=== PATIENT | female | born 1980 | race Caucasian/White ===

== ENCOUNTER 2021-01-07 06:55 | Inpatient (IN) | payer MEDICAID, SELFPAY ==
[2021-01-07] VITALS (74 sets, daily range): BP systolic 81–123; BP diastolic 44–78; PULSE 71–105; RESP 18; TEMP 36.5–37.6; O2SAT 90–100; BMI 28.6
[2021-01-07 09:12] LABS: Absolute Lymphocyte Count 1.69 X10^3/uL (0.83-4.51); Absolute Neutrophil Count 6.2 X10^3/uL (2.0-7.7); Basophil# 0.02 X10^3/uL; Basophil% 0.2 % (0-1); Eosinophil# 0.05 X10^3/uL; Eosinophils% 0.6 % (0-5); Hematocrit 30.3 % (37-47); Hemoglobin 9.9 g/dL (12.0-15.0); Lymphocyte # 1.69 X10^3/ul (0.83-4.51); Lymphocyte % 19.2 % (19-41); Mean Corp Hgb Conc 32.7 g/dL (32-36); Mean Corpuscular Hgb 30.1 pg (27.0-32.0); Mean Corpuscular Volume 92.1 fL (81-99); Mean Platelet Vol. 11.6 fl (6.2-12.0); NRBC Flagged by Analyzer 0 % (0-5); Neutrophil # 6.23 X10^3/uL (2.7-7.7); Platelet Count 195 K/mm3 (150-450); RBC Distribution Width SD 47.4 fl (35.1-43.9); Red Blood Count 3.29 M/mm3 (4.2-5.4); White Blood Count 8.8 K/mm3 (4.4-11.0)
[2021-01-07] MEDS: Oxytocin 30 units/NS 500 ml 30 UNITS/500 ML IV.SOLN IV (09:16)
[2021-01-07] MEDS: Lactated Ringers 1,000 ML 50 ML IV (09:16)
[2021-01-07] MEDS: Lactated Ringers 500 ML 999 ML IV ×2 (14:39→15:57)
[2021-01-07] MEDS: fentaNYL-bupivacaine (epidural) 100 ML BAG EPIDURAL (15:38)
--- NOTE | 2021-01-07 18:25 | OB.TRI.HP_ITS ---
HPI - General General Date of Admission: 01/07/21 HPI Narrative DAINA SAVAGE, is a 40 F at 39.0 weeks gestation for induction of labor for AMA Maternal Data Information FRANNIE Calculator Estimated Delivery Date Method Current WG Current Estimate 01/14/21 Manual 39w 0d PFSH PFS Medical History Advanced maternal age (AMA) in Anemia Asthma Blood clotting disorder Factor 5 Leiden mutation, heterozygous HPV (human papilloma virus) infection Kidney disease depression Home Medications Iron (ferrous sulfate) 325 mg PO/SL DAILY 01/07/21 [History Last Taken 01/06/21 09:00] aspirin 81 mg PO DAILY 01/07/21 [History Last Taken 01/06/21 09:00] cetirizine [Zyrtec] 10 mg PO DAILY PRN PRN 01/07/21 [History Last Taken 01/05/21 10:00] famotidine 20 mg PO DAILY 01/07/21 [History Last Taken 01/06/21 08:00] vit-iron fum-folic ac [Prena-Tab] 1 tab PO DAILY 01/07/21 [History Last Taken 01/06/21 09:00] Allergy/AdvReac Type Severity Reaction Status Date / Time banana Allergy Laryngospas Verified 01/07/21 08:10 ms Gadolinium-MRI Contrast Allergy Hives Verified 01/07/21 08:10 Medium [CONTRAST] Iodinated Contrast Media Allergy Hives Verified 01/07/21 08:10 [CONTRASTS] morphine Allergy Itching Verified 01/07/21 08:09 Surgical History History of surgery Previous section Social History Smoking Status: Never smoker History Elective abortions Hx Para 2 Spontaneous abortions Hx # Term Pregnancies Ectopic pregnancies Hx # Pregnancies Multiple births # of living children ROS Eyes Eyes: Denies blurry vision Cardiovascular Cardiovascular: Reports none; Denies chest pain at rest, chest pain with activity or dizziness Respiratory/Chest Respiratory/Chest: Denies cough or dyspnea Gastrointestinal Gastrointestinal: Reports none and other; Denies diarrhea or vomiting Genitourinary Genitourinary: Denies dysuria Musculoskeletal Musculoskeletal: Reports none Integumentary Integumentary: Reports none; Denies rash Neurologic Neurologic: Denies dizziness, headache(s) or other visual disturbances Psychiatric Psychiatric: Reports none Physical Exam Const alert and no apparent distress General Appearance: cooperative Orientation / Consciousness: awake Exam Limitations: no limitations HEENT normocephalic Eyes General Eye: normal appearance of both eyes Neck full ROM Chest inspection of chest normal Resp normal respiratory effort and normal air movement Effort and Inspection: symmetric chest movement Auscultation: clear to auscultation bilaterally Cardio regular rate GI soft to palpation, non-tender and non-distended Inspection: and other Manual OB Exam: dilated 4.5, effaced 90 and station 0 Amniotic Fluid: clear amniotic fluid Back/Spine normal ROM Extremity full ROM, normal capillary refill and no calf tenderness Skin no rashes or lesions noted Neuro oriented x3 and CN's II-XII intact bilaterally Psych mental status grossly normal NST FHR Rate Baby A Baseline: 145 Variability:: Moderate Accelerations:: 15 x 15 Decelerations:: None NST Reactive:: Yes FHR Category:: Category I Uterine Activity:: 2-5 minutes Assessment & Plan (1) Previous section: (2) Anemia: QUALIFIERS: Anemia type: iron deficiency Iron deficiency anemia t ype: unspecified iron deficiency Qualified Code(s): D50.9 - Iron deficiency anemia, unspecified COMMENT: iv iron infusions (3) Advanced maternal age (AMA) in : (4) Asthma: QUALIFIERS: Asthma severity: unspecified severity Asthma persistence: intermittent Asthma complication type: unspecified Qualified Code(s): J45.20 - Mild intermittent asthma, uncomplicated (5) Rh negative status during : QUALIFIERS: Trimester: third trimester Qualified Code(s): O26.893 - Other specified related conditions, third trimester; Z67.91 - Unspecified blood type, Rh negative (6) Encounter for induction of labor: (7) Patient desires vaginal after section (): PLAN: Continue Pitocin IV and titrate per policy CEFM Epidural when indicated Anticipate Dr. Hamilton present on unit and updated on status
--- NOTE | 2021-01-07 18:43 | HP.PCM.OB_ITS ---
HPI - General General Date of Admission: 01/07/21 HPI Narrative DAINA SAVAGE, is a 40 F at 39.0 weeks gestation who presents for induction of labor for AMA. She has a history of a vaginal delivery and then a primary C/S for failed induction. She desires TOLAC. Maternal Data Information FRANNIE Calculator Estimated Delivery Date Method Current WG Current Estimate 01/14/21 Manual 39w 0d PFSH PFSH Medical History Advanced maternal age (AMA) in Anemia Asthma Blood clotting disorder Factor 5 Leiden mutation, heterozygous HPV (human papilloma virus) infection Kidney disease depression Home Medications Iron (ferrous sulfate) 325 mg PO/SL DAILY 01/07/21 [History Last Taken 01/06/21 09:00] aspirin 81 mg PO DAILY 01/07/21 [History Last Taken 01/06/21 09:00] cetirizine [Zyrtec] 10 mg PO DAILY PRN PRN 01/07/21 [History Last Taken 01/05/21 10:00] famotidine 20 mg PO DAILY 01/07/21 [History Last Taken 01/06/21 08:00] vit-iron fum-folic ac [Prena-Tab] 1 tab PO DAILY 01/07/21 [History Last Taken 01/06/21 09:00] Allergy/AdvReac Type Severity Reaction Status Date / Time banana Allergy Laryngospas Verified 01/07/21 08:10 ms Gadolinium-MRI Contrast Allergy Hives Verified 01/07/21 08:10 Medium [CONTRAST] Iodinated Contrast Media Allergy Hives Verified 01/07/21 08:10 [CONTRASTS] morphine Allergy Itching Verified 01/07/21 08:09 Surgical History History of surgery Previous section Social History Smoking Status: Never smoker History Elective abortions Hx Para 2 Spontaneous abortions Hx # Term Pregnancies Ectopic pregnancies Hx # Pregnancies Multiple births # of living children NST FHR Rate Baby A Baseline: 140 Variability:: Moderate Accelerations:: 15 x 15 Decelerations:: None NST Reactive:: Yes FHR Category:: Category I Uterine Activity:: 2-4 min and palpate mild and relaxed in between ROS Eyes Eyes: Denies blurry vision, change in vision or spots in vision ENT HEENT: Denies dizziness or headache(s) Cardiovascular Cardiovascular: Denies abdominal pain, chest pain or dyspnea Respiratory/Chest Respiratory/Chest: Denies cough, dyspnea, shortness of breath at rest or titus rtness of breath with exertion Gastrointestinal Gastrointestinal: Denies abdominal pain, diarrhea or vomiting Genitourinary Genitourinary: Denies change in urinary stream, difficulty urinating or dysuria Musculoskeletal Musculoskeletal: Reports none Integumentary Integumentary: Denies rash Neurologic Neurologic: Denies dizziness, headache(s), memory loss or weakness Psychiatric Psychiatric: Reports none Vital Signs Vital Signs Vital Signs: 01/07/21 07:45 01/07/21 07:46 01/07/21 09:50 Temperature 98.4 F Pulse Rate 89 75 Blood Pressure 104/58 L 112/70 BP Systolic 104 112 BP Diastolic 58 70 Pulse Ox 01/07/21 09:51 01/07/21 11:15 01/07/21 12:30 Temperature 97.7 F L 98.2 F 99.0 F Pulse Rate 86 79 Blood Pressure 95/62 101/59 L BP Systolic 95 101 BP Diastolic 62 59 Pulse Ox 99 01/07/21 13:53 01/07/21 13:57 01/07/21 15:25 Temperature 98.1 F Pulse Rate 88 89 Blood Pressure 99/54 L 117/78 BP Systolic 99 117 BP Diastolic 54 78 Pulse Ox 01/07/21 15:26 01/07/21 15:31 01/07/21 15:35 Temperature Pulse Rate 103 H 89 97 Blood Pressure 121/74 H 114/65 BP Systolic 121 114 BP Diastolic 74 65 Pulse Ox 100 100 01/07/21 15:36 01/07/21 15:37 01/07/21 15:41 Temperature 98.2 F Pulse Rate 93 81 Blood Pressure 99/58 L BP Systolic 99 BP Diastolic 58 Pulse Ox 100 01/07/21 15:44 01/07/21 15:45 01/07/21 15:49 Temperature Pulse Rate 89 94 90 Blood Pressure 95/55 L BP Systolic 95 BP Diastolic 55 Pulse Ox 100 99 01/07/21 15:50 01/07/21 15:54 01/07/21 15:55 Temperature Pulse Rate 86 90 105 H Blood Pressure 86/48 L 93/55 L BP Systolic 86 93 BP Diastolic 48 55 Pulse Ox 98 01/07/21 15:59 01/07/21 16:04 01/07/21 16:07 Temperature Pulse Rate 97 91 92 Blood Pressure 86/49 L BP Systolic 86 BP Diastolic 49 Pulse Ox 99 99 01/07/21 16:09 01/07/21 16:10 01/07/21 16:14 Temperature Pulse Rate 75 88 Blood Pressure 86/50 L BP Systolic 86 BP Diastolic 50 Pulse Ox 98 100 01/07/21 16:15 01/07/21 16:19 01/07/21 16:23 Temperature Pulse Rate 97 71 86 Blood Pressure 81/44 L 99/52 L BP Systolic 81 99 BP Diastolic 44 52 Pulse Ox 98 01/07/21 16:24 01/07/21 16:26 01/07/21 16:30 Temperature Pulse Rate 89 99 Blood Pressure 96/55 L BP Systolic 96 BP Diastolic 55 Pulse Ox 100 90 01/07/21 16:31 01/07/21 16:34 01/07/21 16:45 Temperature 98.2 F Pulse Rate 91 73 Blood Pressure 123/57 H 106/58 L BP Systolic 123 106 BP Diastolic 57 58 Pulse Ox 01/07/21 16:54 01/07/21 17:05 01/07/21 17:13 Temperature Pulse Rate 80 88 95 Blood Pressure 104/56 L 109/61 107/60 BP Systolic 104 109 107 BP Diastolic 56 61 60 Pulse Ox 01/07/21 17:27 01/07/21 17:28 01/07/21 18:29 Temperature 98.1 F 98.8 F Pulse Rate 83 96 Blood Pressure 109/57 L BP Systolic 109 BP Diastolic 57 Pulse Ox 100 100 100 Weight Weight: 194 lb Body Mass Index (BMI) 28.6 Physical Exam Const alert, oriented x3 and no apparent distress General Appearance: cooperative Orientation / Consciousness: awake Exam Limitations: no limitations HEENT normocephalic Head and Scalp: normal to inspection Eyes General Eye: normal appearance of both eyes Neck full ROM and no lymphadenopathy Lymph Lymphatic: no lymphadenopathy noted Chest inspection of chest normal Resp normal respiratory effort, normal air movement and clear to auscultation bilaterally Effort and Inspection: able to speak in complete sentences and symmetric chest movement Cardio regular rate and regular rhythm GI normal to inspection, nondistended, normoactive bowel sounds Back/Spine normal ROM Extremity full ROM and no calf tenderness Skin no rashes or lesions noted General Skin Exam: no breakdown Neuro oriented x3 and CN's II-XII intact bilaterally Psych mental status grossly normal and thought process normal Labs Labs Labs: Blood Type O NEGATIVE Antibody Screen POSITIVE H Hct 30.3 % (37-47) L Hgb 9.9 g/dL (12.0-15.0) L Assessment & Plan (1) Factor 5 Leiden mutation, heterozygous: (2) Asthma: QUALIFIERS: Asthma complication type: unspecified Asthma persistence: intermittent Asthma severity: unspecified severity Qualified Code(s): J45.20 - Mild intermittent asthma, uncomplicated (3) Previous section: (4) Anemia: QUALIFIERS: Anemia type: iron deficiency Iron deficiency anemia type: unspecified iron deficiency Qualified Code(s): D50.9 - Iron deficiency anemia, unspecified COMMENT: iv iron infusions (5) Advanced maternal age (AMA) in : (6) Rh negative status during : PLAN: Admit to labor and delivery Routine labs Start IV fluids and titrate per orders Pain medications when indicated Placement of Jovel bulb catheter Start Pitocin IV after jovel bulb out GBS negative Dr. Hamilton aware of admission and plan of care Anticipate
[2021-01-07] MEDS: Lactated Ringers 1,000 ML 200 ML IV (18:52)
--- NOTE | 2021-01-07 19:12 | PCM.PN.OB ---
Subjective Subjective Patient seen at bedside. Resting comfortably since epidural placement. Denies any pain. Objective Data Objective Data Vital Signs: Vital Signs Temp Pulse BP Pulse Ox 98.8 F 96 109/57 L 100 01/07/21 18:29 01/07/21 18:29 01/07/21 18:29 01/07/21 18:29 Weight: 194 lb Body Mass Index (BMI) 28.6 Intake & Output: Intake and Output for Last 24 Hours 01/05/21 01/06/21 01/07/21 23:59 23:59 23:59 Intake Total 3088.46 / 3088.46 Output Total 1350 / 1350 Balance 1738.46 / 1738.46 Lab / Micro Data Result Diagrams: 01/07/21 08:50 Labs: Laboratory Results - last 24 hr 01/07/21 01/07/21 08:50 08:50 WBC 8.8 RBC 3.29 L Hgb 9.9 L Hct 30.3 L MCV 92.1 MCH 30.1 MCHC 32.7 RDW Std Deviation 47.4 H RDW Coeff of [place] 14.0 Plt Count 195 MPV 11.6 Immature Gran % (Auto) 1.000 H Neut % (Auto) 71.0 H Lymph % (Auto) 19.2 [place] % (Auto) 8.0 Eos % (Auto) 0.6 Baso % (Auto) 0.2 Absolute Neuts (auto) 6.2 Absolute Lymphs (auto) 1.69 Nucleated RBC % 0 Blood Type O NEGATIVE Antibody Screen POSITIVE H Antibody Identification ANTI-D ROS Eyes Eyes: Denies blurry vision, change in vision or spots in vision ENT HEENT: Denies dizziness or headache(s) Cardiovascular Cardiovascular: Denies abdominal pain, chest pain or dyspnea Respiratory/Chest Respiratory/Chest: Denies cough, dyspnea, shortness of breath at rest or shortness of breath with exertion Gastrointestinal Gastrointestinal: Denies abdominal pain, diarrhea or vomiting Genitourinary Genitourinary: Denies change in urinary stream, difficulty urinating or dysuria Musculoskeletal Musculoskeletal: Reports none Integumentary Integumentary: Denies rash Neurologic Neurologic: Denies dizziness, headache(s), memory loss or weakness Psychiatric Psychiatric: Reports none Physical Exam Const alert and no apparent distress General Appearance: cooperative and comfortable Exam Limitations: no limitations HEENT normocephalic Eyes General Eye: normal appearance of both eyes Neck full ROM General: normal visual inspection Chest Chest: symmetrical chest wall rise Resp normal respiratory effort and normal air movement Effort and Inspection: symmetric chest movement Auscultation: clear to auscultation bilaterally Cardio regular rate and regular rhythm GI normal to inspection, nondistended, normoactive bowel sounds Manual OB Exam: dilated 4.5, effaced 90 and station 0 Back/Spine normal ROM Extremity full ROM and no calf tenderness General Extremity: normal exam except as noted Skin no rashes or lesions noted Neuro CN's II-XII intact bilaterally Psych mental status grossly normal NST FHR Rate Baby A Baseline: 150 Variability:: Moderate Accelerations:: 15 x 15 Decelerations:: None NST Reactive:: Yes FHR Category:: Category I Uterine Activity:: 2-5 min Assessment & Plan (1) Patient desires vaginal after section (): (2) Encounter for induction of labor: (3) Advanced maternal age (AMA) in : PLAN: Continue Pitocin IV per policy CEFM Pain management Cat. 1 tracing, NST reactive Anticipate Dr. Hamilton on unit and updated on patient status
[2021-01-07] MEDS: Oxytocin 30 units/NS 500 ml 30 UNITS/500 ML IV.SOLN 334 UNITS IV (19:41)
--- NOTE | 2021-01-07 19:53 | EX.PCM.OBRPT ---
Assessment & Plan (1) Vaginal after delivery: (2) Factor 5 Leiden mutation, heterozygous: (3) Asthma: QUALIFIERS: Asthma severity: unspecified severity Asthma persistence: intermittent Asthma complication type: unspecified Qualified Code(s): J45.20 - Mild intermittent asthma, uncomplicated (4) Anemia: QUALIFIERS: Anemia type: iron deficiency Iron deficiency anemia type: unspecified iron deficiency Qualified Code(s): D50.9 - Iron deficiency anemia, unspecified COMMENT: iv iron infusions (5) Advanced maternal age (AMA) in : Maternal Data Information FRANNIE Calculator Estimated Delivery Date Method Current WG Current Estimate 01/14/21 Manual 39w 0d Vaginal Delivery Maternal Presentation Maternal Presentation: Medically Indicated Induction Maternal Presentation: at 39.0 weeks gestation for induction of labor for AMA. Type of Induction: Pitocin, Tai Bulb and Amniotomy Medical Reason for Induction: - (AMA, Desires TOLAC) Operative Information Date of Procedure: 01/07/21 Pre-Operative Diagnosis: Term gestation, induction of labor Post-Operative Diagnosis: Same, live male infant Surgery / Procedure Performed: Type of Anesthesia: Epidural Drain: Tai to straight drain Estimated Blood Loss: 200 Time of Delivery: 19:38 Findings Description of Procedure: Patient began feeling increased pressure. Complete dilation +2 station. With first push, head delivered over intact perineum followed quickly by remainder of infant body. Vigorous male infant placed on maternal abdomen and was attended to by nursing staff. Pitocin IV started for active management of the third stage of labor. 3 vessel cord clamped and cut by FOB after 3 minute delay. Cord blood and additional tube of blood collected for nursery orders. Placenta delivered spontaneously and intact via Perez presentation. placed skin to skin with patient. Inspection of vagina and perineum show no lacerations. Fundus firm 2 below U. Hemostasis obtained. EBL 200 cc APGARS 8/9. Patient and bonding well. Dr. Hamilton on unit and aware of delivery. Presentation: Vertex Amniotic Membrane Rupture Type: Artificial Time of Membrane Rupture: 912 Amniotic Fluid Description: Clear Placental Delivery Description: Spontaneous Placenta Disposition: [facility] Cord Vessel Description: 3 Vessels Cord Entanglement: None Infant A Gender: Male (1 minute): 8 (5 minute): 9 Delayed Cord Clamping: Yes Post Vaginal Delivery Medications Given After Delivery: IV Pitocin Episiotomy Description: None Laceration: None Complication Complications: None
[2021-01-07] MEDS: Acetaminophen 500 MG Tablet 1000 MG PO (23:41)
[2021-01-08] VITALS (14 sets, daily range): BP systolic 92–124; BP diastolic 54–65; PULSE 69–81; RESP 16–18; TEMP 36.6–37
--- NOTE | 2021-01-08 00:15 | NURSING ---
Report given to Kat GUTIERREZ, taking over pt and care at this time.
[2021-01-08] MEDS: Naproxen 500 MG Tablet PO ×3 (04:31→22:14)
[2021-01-08] MEDS: Enoxaparin 40 MG/0.4 ML Syringe SC (06:31)
[2021-01-08] MEDS: Acetaminophen 500 MG Tablet 1000 MG PO ×2 (07:49→15:25)
[2021-01-08] MEDS: Ferrous Sulfate 325 MG Tablet PO (08:14)
--- NOTE | 2021-01-08 08:14 | PN.OBGYN_ITS ---
Subjective Subjective patient seen at bedside, doing well. Patient reports good pain control. lochia mild. breast feeding Objective Data Objective Data Vital Signs: Vital Signs Temp Pulse Resp BP Pulse Ox 98.1 F 69 16 116/55 L 98 01/08/21 07:59 01/08/21 07:59 01/08/21 07:59 01/08/21 07:59 01/07/21 23:48 Oxygen Delivery Method Room Air Weight: 87.997 kg Body Mass Index (BMI) 28.6 Intake & Output: Intake and Output for Last 24 Hours 01/06/21 01/07/21 01/08/21 23:59 23:59 23:59 Intake Total 3750.79 / 3750.79 Output Total 1350 / 1350 200 / 200 Balance 2400.79 / 2400.79 -200 / -200 Lab / Micro Data Result Diagrams: 01/07/21 08:50 Labs: Laboratory Results - last 24 hr 01/07/21 01/07/21 08:50 08:50 WBC 8.8 RBC 3.29 L Hgb 9.9 L Hct 30.3 L MCV 92.1 MCH 30.1 MCHC 32.7 RDW Std Deviation 47.4 H RDW Coeff of [place] 14.0 Plt Count 195 MPV 11.6 Immature Gran % (Auto) 1.000 H Neut % (Auto) 71.0 H Lymph % (Auto) 19.2 [place] % (Auto) 8.0 Eos % (Auto) 0.6 Baso % (Auto) 0.2 Absolute Neuts (auto) 6.2 Absolute Lymphs (auto) 1.69 Nucleated RBC % 0 Blood Type O NEGATIVE Antibody Screen POSITIVE H Antibody Identification ANTI-D Physical Exam Const alert and oriented x3 General Appearance: cooperative HEENT normocephalic Neck General: normal visual inspection GI soft to palpation and non-distended GI Narrative: Fundus firm Extremity normal to inspection and no calf tenderness Skin no rashes or lesions noted Neuro oriented x3 and CN's II-XII intact bilaterally Psych mental status grossly normal Assessment & Plan (1) Vaginal after delivery: PLAN: PPD# 1 , Doing well Routine care pain mgmt ambulation
[2021-01-08] MEDS: Senna/Docusate Sodium 1 Tablet PO (13:01)
[2021-01-08] MEDS: Prenatal Vits Tablet 1 TABLET PO (13:01)
[2021-01-09 03:35] VITALS: BP 108/54; PULSE 72; TEMP 37.2
[2021-01-09 03:45] VITALS: BP 108/54; PULSE 72; RESP 16; TEMP 37.2
[2021-01-09] MEDS: Enoxaparin 40 MG/0.4 ML Syringe SC (05:22)
[2021-01-09] MEDS: Acetaminophen 500 MG Tablet 1000 MG PO (05:30)
[2021-01-09 08:21] VITALS: BP 121/70; PULSE 90
[2021-01-09 08:22] VITALS: TEMP 37.2
[2021-01-09 08:40] VITALS: BP 121/70; PULSE 90; RESP 14; TEMP 37.2; O2SAT 99
[2021-01-09] MEDS: Ferrous Sulfate 325 MG Tablet PO (12:45)
[2021-01-09] MEDS: Prenatal Vits Tablet 1 TABLET PO (12:45)
--- NOTE | 2021-01-09 12:55 | PCM.PN.OB ---
Subjective Subjective No complaints Objective Data Objective Data Vital Signs: Vital Signs Temp Pulse Resp BP Pulse Ox 99 F 90 14 121/70 H 99 01/09/21 08:40 01/09/21 08:40 01/09/21 08:40 01/09/21 08:40 01/09/21 08:40 Oxygen Delivery Method Room Air Weight: 194 lb Body Mass Index (BMI) 28.6 Intake & Output: Intake and Output for Last 24 Hours 01/07/21 01/08/21 01/09/21 23:59 23:59 23:59 Intake Total 3750.79 / 3750.79 Output Total 1350 / 1350 200 / 200 Balance 2400.79 / 2400.79 -200 / -200 Lab / Micro Data Result Diagrams: 01/07/21 08:50 Physical Exam Const alert, oriented x3 and no apparent distress HEENT normocephalic GI soft to palpation, non-tender and non-distended GI Narrative: fundus firm, mid & below umbilicus Extremity normal to inspection and no calf tenderness Assessment & Plan (1) Vaginal after delivery: PLAN: D/c to home Lovenox for 6 weeks PP
--- NOTE | 2021-01-09 12:57 | PCM.DC ---
Discharge Instructions Diet Discharge Diet: No restrictions Activity Discharge Activity: May Shower May resume sexual activity in: 6 weeks Weight Bearing Status: Weight bearing as tolerated Dressing / Incision Call your doctor if you observe: Fever of 101 or Higher, Coldness, Increased Pain, Change in Color, Inability to urinate, Inability to have a bowel movement, Using more than 1 pad per hour, Shortness of breath, Dizziness, Fainting spells, Chest pain, Increased palpitations (irregular heartbeat), Calf discomfort and Uncontrolled pain Follow Up Care Please Follow Up With: Pancho Odom MD When: Follow up in 2 and 6 weeks for visits. Test Results: Test results from this visit will be discussed in further detail at your follow-up appointment, if applicable. Discharge Plan Admission Admit Date/Time: 01/07/21 06:55 Primary Reason for Your Visit: Vaginal delivery Attending Provider: Kelly Leblanc Primary Care Provider: Care Physician,No Primary Instructions Patient Instructions: After a Vaginal Discharge Orders/Prescriptions Prescriptions: New enoxaparin 40 mg/0.4 mL syringe 40 mg subcut DAILY@0600 45 Days RF: 1 Continued famotidine 20 mg tablet 20 mg PO DAILY RF: 0 Iron (ferrous sulfate) 325 mg PO/SL DAILY RF: 0 cetirizine [Zyrtec] 10 mg Tablet 10 mg PO DAILY PRN PRN (Reason: allergies) RF: 0 vit-iron fum-folic ac 65 mg iron- 1 mg Tablet 1 tab PO DAILY RF: 0 Discontinued aspirin 81 mg tablet,chewable 81 mg PO DAILY RF: 0 Referrals / Follow Up: Care Physician,No Primary [Primary Care Provider] - Disposition Disposition (needs filled in before D/C Order can be placed): Home, self care
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
== END 2021-01-09 13:45 | disposition home or self-care (01) | DRG 560 ==
PROVIDERS: Obstetrics & Gynecology; Admitting Provider Advanced Practice Midwife; Referring Provider Advanced Practice Midwife; Visit Provider Advanced Practice Midwife
DX: O34.219 Maternal care for unspecified type scar from previous cesarean delivery (principal); O99.12 Other diseases of the blood and blood-forming organs and certain disorders involving the immune mechanism complicating childbirth; D68.51 Activated protein C resistance; O99.02 Anemia complicating childbirth; D50.9 Iron deficiency anemia, unspecified; O98.32 Other infections with a predominantly sexual mode of transmission complicating childbirth; A63.0 Anogenital (venereal) warts; Z79.01 Long term (current) use of anticoagulants; Z79.82 Long term (current) use of aspirin; Z3A.39 39 weeks gestation of pregnancy; Z37.0 Single live birth
CPT/HCPCS: 59025; 59050; 85025; 86850; 86870; 86900; 86901; 99218; J7120; G0378